=== PATIENT | male | born 1980 | race African-American/Black ===

== ENCOUNTER 2023-09-30 10:35 | Emergency (ER) | payer OTHER ==
[2023-09-30] MEDS ORDERED: Morphine 4 MG/ML VIAL ONE ×3 (11:09→18:48)
[2023-09-30] MEDS ORDERED: Vancomycin 1 GM VIAL ONE (11:09)
[2023-09-30] MEDS ORDERED: Ondansetron PF 4 MG/2 ML Vial ONE (11:09)
[2023-09-30] MEDS ORDERED: Piperacillin/Tazobactam 4.5 GM VIAL ONE (11:10)
[2023-09-30 13:14] LABS: #Basophils 0.1 10x3/uL (0.0-0.2); #Eosinphils 0.1 10x3/uL (0.0-0.5); #Monocytes 0.7 10x3/uL (0.0-1.1); #Neutrophils 8.5 10x3/uL (1.5-8.4); %Basophils 0.5 % (0.0-2.0); %Eosinophils 0.9 % (0.0-6.0); %Lymphocytes 16.7 % (18.0-47.0); %Monocytes 6.5 % (0.0-10.0); %Neutrophils 75.1 % (40.0-75.0); Hematocrit 26.2 % (38.8-50.0); Mean Corpuscular HGB CONC 34.4 g/dL (32.0-36.0); Mean Corpuscular Volume 84.5 fl (81.2-95.1); Mean Platelet Volume 9.1 fl (7.4-10.4); Platelet Count 591 10x3/uL (150-450); RBC Distribution Width 13.7 % (11.5-14.5); White Blood Cell (WBC) Count 11.3 10x3/uL (3.5-10.5)
[2023-09-30 13:30] LABS: Magnesium 1.9 mg/dL (1.6-2.6)
[2023-09-30 13:31] LABS: ALT (SGPT) 28 U/L (8-55); AST (SGOT) 18 U/L (5-34); Albumin 3.5 g/dL (3.5-5.0); Alkaline Phosphatase 120 U/L (40-110); Anion Gap 14 mmol/L (10-20); BUN (Urea Nitrogen) 11 mg/dL (8.9-20.6); Bilirubin, Total 0.4 mg/dL (0.2-1.2); Calc. Creatinine Clearance 0 mL/min (70-130); Calcium 9.4 mg/dL (7.8-10.44); Carbon Dioxide 25 mmol/L (22-29); Chloride 104 mmol/L (98-107); Estimated GFR 96; Globulin 4.2 g/dL (2.4-3.5); Glucose 91 mg/dL (70-105); Protein, Total 7.7 g/dL (6.0-8.3); Sodium 139 mmol/L (136-145)
[2023-09-30 13:49] LABS: CRP (Inflammatory) 6.87 mg/dL (= or < 0.5)
== END 2023-09-30 19:00 | disposition short-term general hospital (02) ==
LOC: CSHERS 10:35
DX: M86.171 Other acute osteomyelitis, right ankle and foot (principal); I10 Essential (primary) hypertension; E78.5 Hyperlipidemia, unspecified; Z79.82 Long term (current) use of aspirin; Z79.899 Other long term (current) drug therapy
CPT/HCPCS: 36415; 80053; 83605; 83735; 85025; 86140; 87040; 96365; 96375; 96376; J2270; J2405; J2543; J3370